=== PATIENT | female | born 1975 | race Caucasian/White ===

== ENCOUNTER 2018-05-11 22:42 | Inpatient (IN) | payer BC ==
--- NOTE | 2018-05-11 23:09 | PDOC ---
History of Present Illness - General Chief Complaint: Pain Stated Complaint: Vomiting/ ABD PAIN Time Seen by Provider: 05/11/18 23:09 Past History - Past Medical History Allergies/Adverse Reactions: Allergies Allergy/AdvReac Type Severity Reaction Status Date / Time No Known Allergies Allergy Verified 05/11/18 22:49 Home Medications: Ambulatory Orders Capecitabine [Xeloda -] 150 mg PO DAILY 02/11/16 Docusate Sodium [Colace -] 100 mg PO BID 02/11/16 Oxaliplatin [Eloxatin -] 50 mg IV ONCE 02/11/16 Psyllium Husk [Metamucil] 660 gm PO DAILY 02/11/16 Cancer: Yes (rectal) COPD: No - Surgical History Abdominal Surgery: Yes (COLSTOMY) - Suicide/Smoking/Psychosocial Hx Smoking History: Never smoked *Physical Exam - Vital Signs Last Vital Signs Temp Pulse Resp BP Pulse Ox 98.2 F 77 18 111/79 100 05/11/18 22:45 05/11/18 22:45 05/11/18 22:45 05/11/18 22:45 05/11/18 22:45
[2018-05-11 23:27] VITALS: BMI 22.9
--- NOTE | 2018-05-11 23:27 | PDOC ---
History of Present Illness - General Chief Complaint: Pain Stated Complaint: Vomiting/ ABD PAIN Time Seen by Provider: 05/11/18 23:09 - History of Present Illness Initial Comments: 42 year old female with PH of colorectal cancer since 2016 (recurrence 4 months prior requiring resection and currently on "mop up" chemotherapy) presenting with nausea, vomiting, and abdominal pain for the past few hours. Describes her vomiting as non-bloody but bilious had hit "countless times today ". Describes her abdominal pain as diffuse, crampy, and sharp with 7/10-10/10 and constantly present with occasional increase in intensity. Denies any cough, SOB, chest pain, headache, fevers, or other symptoms. 05/12/18 00:35 Past History - Past Medical History Allergies/Adverse Reactions: Allergies Allergy/AdvReac Type Severity Reaction Status Date / Time No Known Allergies Allergy Verified 05/11/18 22:49 Home Medications: Ambulatory Orders Capecitabine [Xeloda -] 150 mg PO DAILY 02/11/16 Docusate Sodium [Colace -] 100 mg PO BID 02/11/16 Oxaliplatin [Eloxatin -] 50 mg IV ONCE 02/11/16 Psyllium Husk [Metamucil] 660 gm PO DAILY 02/11/16 Cancer: Yes (rectal) COPD: No - Surgical History Abdominal Surgery: Yes (COLSTOMY) - Suicide/Smoking/Psychosocial Hx Smoking History: Never smoked Review of Systems - Review of Systems Constitutional: No: Chills, Diaphoresis, Fever HEENTM: No: Blurred Vision, Tearing Respiratory: No: Cough, Orthopnea, Shortness of Breath Cardiac (ROS): No: Chest Pain, Edema, Irregular Heart Rate ABD/GI: Yes: Nausea, Poor Appetite, Vomiting. No: Constipated, Diarrhea : No: Burning, Dysuria, Discharge Musculoskeletal: No: Back Pain, Joint Pain, Joint Swelling, Muscle Pain Integumentary: No: Bruising, Change in Color, Erythema, Flushing, Lesions Neurological: No: Headache, Numbness, Paresthesia Psychiatric: No: Anxiety, Depression Endocrine: No: Increased Hunger, Increased Thirst, Increased Urine Hematologic/Lymphatic: No: Anemia, Blood Clots, Easy Bleeding *Physical Exam - Vital Signs Last Vital Signs Temp Pulse Resp BP Pulse Ox 98.2 F 77 18 111/79 100 05/11/18 22:45 05/11/18 22:45 05/11/18 22:45 05/11/18 22:45 05/11/18 22:45 - Physical Exam General Appearance: Yes: Nourished, Appropriately Dressed. No: Apparent Distress HEENT: positive: EOMI, TAMARA, Normal ENT Inspection, Normal Voice Neck: positive: Trachea midline, Normal Thyroid, Supple. negative: Tender, Rigid Respiratory/Chest: positive: Lungs Clear, Normal Breath Sounds. negative: Chest Tender, Respiratory Distress, Accessory Muscle Use Cardiovascular: positive: Regular Rhythm, Regular Rate. negative: Bradycardia, Tachycardia Gastrointestinal/Abdominal: positive: Tender (diffusely tender), Flat, Soft, Increased Bowel Sounds, Other (colostomy bag in place on inthe upper left quadrant with insertin site clean dry and intact). negative: Normal Bowel Sounds (hyperactive bowel sounds) Lymphatic: negative: Adenopathy, Tenderness Musculoskeletal: positive: Normal Inspection. negative: Decreased Range of Motion Extremity: positive: Normal Capillary Refill, Normal Inspection, Normal Range of Motion. negative: Tender Integumentary: positive: Normal Color, Dry, Warm Neurologic: positive: Fully Oriented, Alert, Normal Mood/Affect, Normal Response , Motor Strength 5/5 ED Treatment Course - LABORATORY CBC & Chemistry Diagram: 05/11/18 00:32 05/11/18 00:32 Medical Decision Making - Medical Decision Making 42 year old s/p colostomy bag placement with colorectal carcinoma recurrence resection presenting with abdominal pain, nausea, and vomiting of sudden onset today. VSS but patient severely tender. Labs WNL and patient pain mildly improved to morphine [address] abdomen with IV con results pending and patient was signed out to Dr. Zabala pending results with suspicion for SBO vs. ileus as patient is afebrile and colostomy site does not appear infected. If CT scan negative, patient will likely have to be admitted regardless for intractable nausea, vomiting, and abdominal pain. 05/12/18 02:05 *DC/Admit/Observation/Transfer Diagnosis at time of Disposition: Intractable abdominal pain Nausea & vomiting Qualifiers: Vomiting type: bilious vomiting Qualified Code(s): R11.14 - Bilious vomiting - Referrals - Patient Instructions - Post Discharge Activity
[2018-05-11] MEDS ORDERED: ONDANSETRON 4 MG/2 ML VIAL IVPUSH ONE (23:38)
[2018-05-11] MEDS ORDERED: SODIUM CHLORIDE 0.9% 500 ML INFUS.BAG IV ONE (23:39)
[2018-05-12] MEDS ORDERED: morphine CARPU-JECT 4 MG/1 ML DISP.SYRIN IVPUSH ONE ×3 (00:14→04:47)
[2018-05-12] MEDS ORDERED: morphine SULFATE 4 MG/ML VIAL ONE ×3 (00:23→11:05)
[2018-05-12] MEDS ORDERED: ONDANSETRON 4 MG/2 ML VIAL ONE ×3 (00:23→15:48)
[2018-05-12 01:02] LABS: BASO % 0.3 % (0-2.0); EOS % 0.3 % (0-4.5); HEMATOCRIT 40.4 % (32.4-45.2); HEMOGLOBIN 13.1 GM/dL (10.7-15.3); LYMPH % 8.6 % (8-40); MCH 26.3 pg (25.7-33.7); MCHC 32.4 g/dl (32.0-36.0); MEAN CELL VOLUME 81.1 fl (80-96); MEAN PLT VOLUME 8.2 fl (7.5-11.1); MONO % 3.7 % (3.8-10.2); NEUT % 87.1 % (42.8-82.8); PLATELET COUNT 321 K/MM3 (134-434); RBC 4.99 M/mm3 (3.60-5.2); RDW 16.6 % (11.6-15.6); WHITE BLOOD COUNT 7.8 K/mm3 (4.0-10.0)
[2018-05-12 01:15] LABS: INR 0.92 (0.83-1.09); PROTHROMBIN TIME (PATIENT) 10.8 SEC (9.7-13.0)
[2018-05-12 01:26] LABS: ALBUMIN 4.8 g/dl (3.4-5.0); ALK PHOS 128 U/L (45-117); ANION GAP 10 MMOL/L (8-16); BILIRUBIN,TOTAL 0.3 mg/dL (0.2-1); BLOOD UREA NITROGEN 13 mg/dL (7-18); CALCIUM 10.2 mg/dL (8.5-10.1); CHLORIDE 102 mmol/L (98-107); CO2 29 mmol/L (21-32); CREATININE 0.8 mg/dL (0.55-1.3); GLUCOSE,RANDOM 109 mg/dL (74-106); POTASSIUM 4.2 mmol/L (3.5-5.1); SGOT/AST 31 U/L (15-37); SGPT/ALT 29 U/L (13-61); SODIUM 141 mmol/L (136-145); TOT PROT 9.2 g/dl (6.4-8.2)
--- NOTE | 2018-05-12 02:01 | PDOC ---
Attending Attestation - HPI HPI: 05/12/18 02:01 The patient is a 42 year old female with a past medical history of colorectal cancer and permanent ostomy bag (12/26) who presents to the emergency department for evaluation of abdominal pain with nausea and vomiting since 7pm. Patient endorses lightheadedness. Denies palpitations, chest pain, fevers, chills, diarrhea, and constipation. Allergies: NKDA PCP: Dr. Irizarry (Not on staff) - Physicial Exam PE: wnwd 42 y/o female in no acute distress head ncat neck supple oropharynx no exudates neck supple Heart RRR. No gallops, murmurs, or rubs. lungs clear to auscultation bilaterally Abd (+)Diffusely tender. Osteotomy site clean, no erythema, purulence, or drainage.Abdominal incisions old well healed. ext no e/c/c, MAEx4 skin warm and dry,no rashes neuro A&Ox3,no gross focal neuro deficits. Conversant. <Ba Tolbert - Last Filed: 05/12/18 02:01> - Resident Resident Name: Darinel Gonzalez - ED Attending Attestation I have performed the following: I have examined & evaluated the patient, The case was reviewed & discussed with the resident, I agree w/resident's findings & plan, Exceptions are as noted - Medical Decision Making 05/12/18 02:10 concern for SBO pt recieved antiemetics pt has pending ct scam abd/pel signed out to Dr Link <Celena Torres - Last Filed: 05/12/18 02:10> Attestations - Attestations Documentation prepared by Ba Tolbert, acting as medical hospital sales for Celena Torres MD. <Ba Tolbert - Last Filed: 05/12/18 02:01>
[2018-05-12 02:09] LABS: URINE APPEARANCE CLOUDY; URINE BILIRUBIN NEGATIVE (<2.0 mg/dL); URINE COLOR YELLOW; URINE GLUCOSE (UA) NEGATIVE (NEGATIVE); URINE KETONE NEGATIVE (NEGATIVE); URINE NITRITE NEGATIVE (NEGATIVE); URINE PROTEIN NEGATIVE (NEGATIVE); URINE UROBILINOGEN NEGATIVE mg/dL (0.2-1.0)
[2018-05-12 02:10] LABS: HCG,QUALITATIVE URINE Negative
[2018-05-12 02:11] LABS: URINE LEUK ESTERASE 3+ (NEGATIVE)
[2018-05-12 02:12] LABS: EPI CELLS RARE /HPF (FEW); URINE MUCUS RARE
[2018-05-12] MEDS ORDERED: SODIUM CHLORIDE 1,000 ML IV STA (02:25)
--- NOTE | 2018-05-12 03:03 | PDOC ---
*Physical Exam - Vital Signs Last Vital Signs Temp Pulse Resp BP Pulse Ox 98.2 F 77 18 111/79 100 05/11/18 22:45 05/11/18 22:45 05/11/18 22:45 05/11/18 22:45 05/11/18 22:45 ED Treatment Course - LABORATORY CBC & Chemistry Diagram: 05/11/18 00:32 05/11/18 00:32 - ADDITIONAL ORDERS Additional order review: Laboratory Results 05/12/18 05/11/18 05/11/18 01:39 00:32 00:32 PT with INR INR Sodium 141 Potassium 4.2 Chloride 102 Carbon Dioxide 29 Anion Gap 10 BUN 13 Creatinine 0.8 Creat Clearance w eGFR > 60 Random Glucose 109 H Lactic Acid 1.7 Calcium 10.2 H Total Bilirubin 0.3 AST 31 ALT 29 Alkaline Phosphatase 128 H Total Protein 9.2 H Albumin 4.8 Beta HCG, Quant 2.1 Urine Color Yellow Urine Appearance Cloudy Urine pH 7.0 D Ur Specific [place] 1.018 Urine Protein Negative Urine Glucose (UA) Negative Urine Ketones Negative Urine Blood Negative Urine Nitrite Negative Urine Bilirubin Negative Urine Urobilinogen Negative Ur Leukocyte Esterase 3+ H D Urine WBC (Auto) 31 Urine RBC (Auto) 6 Ur Epithelial Cells Rare Urine Mucus Rare Urine HCG, Qual Negative 05/11/18 00:32 PT with INR 10.80 INR 0.92 Sodium Potassium Chloride Carbon Dioxide Anion Gap BUN Creatinine Creat Clearance w eGFR Random Glucose Lactic Acid Calcium Total Bilirubin AST ALT Alkaline Phosphatase Total Protein Albumin Beta HCG, Quant Urine Color Urine Appearance Urine pH Ur Specific [place] Urine Protein Urine Glucose (UA) Urine Ketones Urine Blood Urine Nitrite Urine Bilirubin Urine Urobilinogen Ur Leukocyte Esterase Urine WBC (Auto) Urine RBC (Auto) Ur Epithelial Cells Urine Mucus Urine HCG, Qual 05/11/18 00:32 RBC 4.99 MCV 81.1 MCHC 32.4 RDW 16.6 H MPV 8.2 Neutrophils % 87.1 H D Lymphocytes % 8.6 D Monocytes % 3.7 L Eosinophils % 0.3 Basophils % 0.3 - Medications Given in the ED: ED Medications Discontinued Medications Generic Name Dose Route Start Last Admin Trade Name Freq PRN Reason Stop Dose Admin Morphine Sulfate 4 mg 05/12/18 00:14 05/12/18 00:30 Morphine Injection - IVPUSH 05/12/18 00:15 4 mg ONCE ONE Administration Morphine Sulfate 4 mg 05/12/18 01:25 05/12/18 01:47 Morphine Injection - IVPUSH 05/12/18 01:26 4 mg ONCE ONE Administration Ondansetron HCl 4 mg 05/11/18 23:38 05/12/18 00:29 Zofran Injection IVPUSH 05/11/18 23:39 4 mg ONCE ONE Administration Sodium Chloride 1,000 ml 05/11/18 23:39 05/12/18 00:29 Normal Saline - IV 05/11/18 23:40 1,000 ml ONCE ONE Administration Medical Decision Making - Medical Decision Making 05/12/18 03:02 42 year old female with PMH colon cancer (resected x5 months ago, has colostomy , on chemo presented to ED complaining of N/V, diffuse abdominal pain. CBC WBC 7.8 K/mm3 (4.0-10.0) 05/11/18 00:32 RBC 4.99 M/mm3 (3.60-5.2) 05/11/18 00:32 Hgb 13.1 GM/dL (10.7-15.3) 05/11/18 00:32 Hct 40.4 % (32.4-45.2) D 05/11/18 00:32 MCV 81.1 fl (80-96) 05/11/18 00:32 MCH 26.3 pg (25.7-33.7) D 05/11/18 00:32 MCHC 32.4 g/dl (32.0-36.0) 05/11/18 00:32 RDW 16.6 % (11.6-15.6) H 05/11/18 00:32 Plt Count 321 K/MM3 (134-434) D 05/11/18 00:32 MPV 8.2 fl (7.5-11.1) 05/11/18 00:32 Absolute Neuts (auto) 6.8 K/mm3 (1.5-8.0) 05/11/18 00:32 Neutrophils % 87.1 % (42.8-82.8) H D 05/11/18 00:32 Lymphocytes % 8.6 % (8-40) D 05/11/18 00:32 Monocytes % 3.7 % (3.8-10.2) L 05/11/18 00:32 Eosinophils % 0.3 % (0-4.5) 05/11/18 00:32 Basophils % 0.3 % (0-2.0) 05/11/18 00:32 Nucleated RBC % 0 % (0-0) 05/11/18 00:32 CMP Sodium 141 mmol/L (136-145) 05/11/18 00:32 Potassium 4.2 mmol/L (3.5-5.1) 05/11/18 00:32 Chloride 102 mmol/L (98-107) 05/11/18 00:32 Carbon Dioxide 29 mmol/L (21-32) 05/11/18 00:32 Anion Gap 10 MMOL/L (8-16) 05/11/18 00:32 BUN 13 mg/dL (7-18) 05/11/18 00:32 Creatinine 0.8 mg/dL (0.55-1.3) 05/11/18 00:32 Creat Clearance w eGFR > 60 (>60) 05/11/18 00:32 Random Glucose 109 mg/dL (74-106) H 05/11/18 00:32 Lactic Acid 1.7 mmol/L (0.4-2.0) 05/11/18 00:32 Calcium 10.2 mg/dL (8.5-10.1) H 05/11/18 00:32 Total Bilirubin 0.3 mg/dL (0.2-1) 05/11/18 00:32 AST 31 U/L (15-37) 05/11/18 00:32 ALT 29 U/L (13-61) 05/11/18 00:32 Alkaline Phosphatase 128 U/L (45-117) H 05/11/18 00:32 Total Protein 9.2 g/dl (6.4-8.2) H 05/11/18 00:32 Albumin 4.8 g/dl (3.4-5.0) 05/11/18 00:32 Beta HCG, Quant 2.1 mIU/ml 05/11/18 00:32 Urine Test Results Urine Color Yellow 05/12/18 01:39 Urine Appearance Cloudy 05/12/18 01:39 Urine pH 7.0 (5.0-8.0) D 05/12/18 01:39 Ur Specific [place] 1.018 (1.001-1.035) 05/12/18 01:39 Urine Protein Negative (NEGATIVE) 05/12/18 01:39 Urine Glucose (UA) Negative (NEGATIVE) 05/12/18 01:39 Urine Ketones Negative (NEGATIVE) 05/12/18 01:39 Urine Blood Negative (NEGATIVE) 05/12/18 01:39 Urine Nitrite Negative (NEGATIVE) 05/12/18 01:39 Urine Bilirubin Negative (<2.0 mg/dL) 05/12/18 01:39 Ur Leukocyte Esterase 3+ (NEGATIVE) H D 05/12/18 01:39 Ur Epithelial Cells Rare /HPF (FEW) 05/12/18 01:39 Urine Mucus Rare 05/12/18 01:39 CT A/P - SBO - I spoke with the patient and her family about the need for an NG tube, they expressed understanding and agree to have it placed. - NG tube placed - Surgery paged. I spoke with the admitting team, Dr. Antonio, about the case, who agrees to have the patient admitted to Dr. Vaughn's service. - Pt will be admitted. - I spoke with the patient and her family about the plan for care, with which they agree. Pt reassessed, reports pain at the NG tube site in nose. - 4 mg morphine ordered. EKG performed at 0626 - rate 63, regular rhythm, normal axis, normal intervals, non-specific ST changes. 05/12/18 06:52 Pt complains of nausea. - Zofran ordered. I spoke with Surgery, Dr. Vinson, about the case, he agrees to consult. *DC/Admit/Observation/Transfer Diagnosis at time of Disposition: Intractable abdominal pain, SBO (small bowel obstruction) Nausea & vomiting Qualifiers: Vomiting type: bilious vomiting Qualified Code(s): R11.14 - Bilious vomiting - Discharge Dispostion Condition at time of disposition: Stable Decision to Admit order: Yes - Referrals - Patient Instructions - Post Discharge Activity
[2018-05-12] MEDS ORDERED: MORPHINE SULFATE 2 MG/ML VIAL ONE (05:04)
--- NOTE | 2018-05-12 05:32 | PN ---
Teaching Attending Note Name of Resident: Ja Giordano ATTENDING PHYSICIAN STATEMENT I saw and evaluated the patient. I reviewed the resident's note and discussed the case with the resident. I agree with the resident's findings and plan as documented. SUBJECTIVE: Patient is a 42 year old woman with history of colorectal cancer since 2016 ( recurrence 4 months prior requiring resection and currently on "mop up" chemotherapy) presenting with nausea, vomiting, and abdominal pain for the past few hours. Describes her vomiting as non-bloody but bilious had hit "countless times today". Describes her abdominal pain as diffuse, crampy, and sharp with 7/ 10-10/10 and constantly present with occasional increase in intensity. Denies any cough, SOB, chest pain, headache, fevers, or other symptoms. OBJECTIVE: Alert Vital Signs Period Temp Pulse Resp BP Sys/Nicole Pulse Ox Last 24 Hr 98.2 F 77 18 111/79 100 HEENT: No Jaundice, eye redness or discharge, PERRLA, EOMI. Normocephalic, atraumatic. External ears are normal and hearing is grossly intact. No nasal discharge. Neck: Supple, nontender. No palpable adenopathy or thyromegaly. No JVD Chest: Good effort. Clear to auscultation and percussion. Heart: Regular. No S3, rub or murmur Abdomen: Not distended, soft, diffuse tenderness, LUQ colostomy intact and no HSM. No rebound or guarding. Hyperactive bowel sounds. Ext: Peripheral pulses intact. No leg edema. Skin: Warm and dry. No petechiae, rash or ecchymosis. Neuro: Alert. Oriented x3. CN 2-12 grossly intact. Sensation grossly intact in all four extremities and DTR are symmetric. Home Medications Medication Instructions Recorded Capecitabine [Xeloda -] 150 mg PO DAILY 02/11/16 Docusate Sodium [Colace -] 100 mg PO BID 02/11/16 Oxaliplatin [Eloxatin -] 50 mg IV ONCE 02/11/16 Psyllium Husk [Metamucil] 660 gm PO DAILY 02/11/16 Abnormal Lab Results 05/11/18 05/11/18 05/12/18 00:32 00:32 01:39 RDW 16.6 H Neutrophils % 87.1 H D Monocytes % 3.7 L Random Glucose 109 H Calcium 10.2 H Alkaline Phosphatase 128 H Total Protein 9.2 H Ur Leukocyte Esterase 3+ H D ASSESSMENT AND PLAN: 1. SBO/UTI - Clinical features consistent with bowel obstruction. Awaiting result of abd/pelvis CT scan. Continue pain control with IV morphine, NGT and IV NS. Awaiting surgery evaluation. Will give IV Rocephin for UTI pending culture report. 2. DVT prophylaxis - Lovenox 40 mg SQ q 24 hours. 3. Advance directives - Full code
--- NOTE | 2018-05-12 05:34 | HP ---
CHIEF COMPLAINT: nausea/vomiting/abdominal pain for 2 days PCP: HISTORY OF PRESENT ILLNESS: 42F w/ pmhx of colorectal cancer (diagnosed 2015) w/ multiple abdominal surgeries s/p ostomy bag placement since 12/26 presented to the ED w/ nausea, vomiting, abdominal pain for 2 days. She states she has never had these symptoms before and reports the abdominal pain to be 6/10. She denies sob, chest pain, [place]/d, urinary symptoms, or blood in urine or stool. 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 Home: Currently lives with 1 son, 1 daughter Family History: Denies Allergies No Known Allergies Allergy (Verified 05/11/18 22:49) HOME MEDICATIONS: Home Medications Medication Instructions Recorded Capecitabine [Xeloda -] 150 mg PO DAILY 02/11/16 Docusate Sodium [Colace -] 100 mg PO BID 02/11/16 Oxaliplatin [Eloxatin -] 50 mg IV ONCE 02/11/16 Psyllium Husk [Metamucil] 660 gm PO DAILY 02/11/16 REVIEW OF SYSTEMS CONSTITUTIONAL: Absent: fever, chills, diaphoresis, generalized weakness, malaise, loss of appetite, weight change HEENT: Absent: rhinorrhea, nasal congestion, throat pain, throat swelling, difficulty swallowing, mouth swelling, ear pain, eye pain, visual changes CARDIOVASCULAR: Absent: chest pain, syncope, palpitations, irregular heart rate, lightheadedness , peripheral edema RESPIRATORY: Absent: cough, shortness of breath, dyspnea with exertion, orthopnea, wheezing, stridor, hemoptysis GASTROINTESTINAL: abdominal pain, abdominal distension, nausea, vomiting Absent: diarrhea, constipation, melena, hematochezia GENITOURINARY: Absent: dysuria, frequency, urgency, hesitancy, hematuria, flank pain, genital pain MUSCULOSKELETAL: Absent: myalgia, arthralgia, joint swelling, back pain, neck pain SKIN: Absent: rash, itching, pallor HEMATOLOGIC/IMMUNOLOGIC: Absent: easy bleeding, easy bruising, lymphadenopathy, frequent infections ENDOCRINE: Absent: unexplained weight gain, unexplained weight loss, heat intolerance, cold intolerance NEUROLOGIC: Absent: headache, focal weakness or paresthesias, dizziness, unsteady gait, seizure, mental status changes, bladder or bowel incontinence PSYCHIATRIC: Absent: anxiety, depression, suicidal or homicidal ideation, hallucinations. PHYSICAL EXAMINATION Vital Signs - 24 hr 05/11/18 22:45 Temperature 98.2 F Pulse Rate 77 Respiratory 18 Rate Blood Pressure 111/79 O2 Sat by Pulse 100 Oximetry (%) GENERAL: AAOx3. Lethagic. HEENT: NC/AT. Moist mucus membranes. NG tube in place. NECK: Normal range of motion. Supple, no LAD/JVD. LUNGS: CTA B/L, No w/r/r noted. ABDOMEN: Soft, tender to palpation. Mildly distended. Ostomy bag in place with brown liquid stool. Multiple abdominal surgical scars. MUSCULOSKELETAL: Normal range of motion at all joints. No bony deformities or tenderness. No CVA tenderness. UPPER EXTREMITIES: 2+ pulses, warm, well-perfused. No cyanosis. No clubbing. No peripheral edema. LOWER EXTREMITIES: 2+ pulses, warm, well-perfused. No calf tenderness. No peripheral edema. NEUROLOGICAL: Cranial nerves II-XII intact. Normal speech. Gait not observed. PSYCHIATRIC: Cooperative. Good eye contact. Appropriate mood and affect. SKIN: Warm, dry, normal turgor, no rashes or lesions noted, normal capillary refill. Laboratory Results - last 24 hr 05/11/18 05/11/18 05/11/18 00:32 00:32 00:32 WBC 7.8 RBC 4.99 Hgb 13.1 Hct 40.4 D MCV 81.1 MCH 26.3 D MCHC 32.4 RDW 16.6 H Plt Count 321 D MPV 8.2 Absolute Neuts (auto) 6.8 Neutrophils % 87.1 H D Lymphocytes % 8.6 D Monocytes % 3.7 L Eosinophils % 0.3 Basophils % 0.3 Nucleated RBC % 0 PT with INR 10.80 INR 0.92 Sodium 141 Potassium 4.2 Chloride 102 Carbon Dioxide 29 Anion Gap 10 BUN 13 Creatinine 0.8 Creat Clearance w eGFR > 60 Random Glucose 109 H Lactic Acid Calcium 10.2 H Total Bilirubin 0.3 AST 31 ALT 29 Alkaline Phosphatase 128 H Total Protein 9.2 H Albumin 4.8 Beta HCG, Quant 2.1 Urine Color Urine Appearance Urine pH Ur Specific [place] Urine Protein Urine Glucose (UA) Urine Ketones Urine Blood Urine Nitrite Urine Bilirubin Urine Urobilinogen Ur Leukocyte Esterase Urine WBC (Auto) Urine RBC (Auto) Ur Epithelial Cells Urine Mucus Urine HCG, Qual 05/11/18 05/12/18 00:32 01:39 WBC RBC Hgb Hct MCV MCH MCHC RDW Plt Count MPV Absolute Neuts (auto) Neutrophils % Lymphocytes % Monocytes % Eosinophils % Basophils % Nucleated RBC % PT with INR INR Sodium Potassium Chloride Carbon Dioxide Anion Gap BUN Creatinine Creat Clearance w eGFR Random Glucose Lactic Acid 1.7 Calcium Total Bilirubin AST ALT Alkaline Phosphatase Total Protein Albumin Beta HCG, Quant Urine Color Yellow Urine Appearance Cloudy Urine pH 7.0 D Ur Specific [place] 1.018 Urine Protein Negative Urine Glucose (UA) Negative Urine Ketones Negative Urine Blood Negative Urine Nitrite Negative Urine Bilirubin Negative Urine Urobilinogen Negative Ur Leukocyte Esterase 3+ H D Urine WBC (Auto) 31 Urine RBC (Auto) 6 Ur Epithelial Cells Rare Urine Mucus Rare Urine HCG, Qual Negative ASSESSMENT/PLAN: 42F w/ pmhx of colorectal cancer (diagnosed 2015) s/p colostomy bag presents with n/v/abd pain admitted for SBO. #SBO -NPO -NG tube -Morphine 4 mg IVP for pain -Zofran 4 mg IVP for nausea -Surgery consult ordered #UTI; U/A 3+ LE, 3+ WBCs -empiric Ceftriaxone 1g IVPB QD -urine cx ordered #DVT Ppx -SCDs #FEN -recheck lytes in AM -NPO dispo -admit to med-surg Visit type - Emergency Visit Emergency Visit: Yes ED Registration Date: 05/12/18 Care time: The patient presented to the Emergency Department on the above date and was hospitalized for further evaluation of their emergent condition. - New Patient This patient is new to me today: Yes Date on this admission: 05/12/18 - Critical Care Critical Care patient: No
[2018-05-12] MEDS ORDERED: ONDANSETRON 4 MG/2 ML VIAL IVPUSH ONE ×2 (06:52→07:01)
[2018-05-12] MEDS ORDERED: CEFTRIAXONE 1,000 MG in DEXTROSE 5%-WATER - 50 ML IVPB ONE (07:02)
[2018-05-12] MEDS ORDERED: CEFTRIAXONE 1 GM/50 ML BAG ONE (07:44)
[2018-05-12] MEDS ORDERED: ONDANSETRON 4 MG/2 ML VIAL IVPUSH PRN (08:10)
--- NOTE | 2018-05-12 10:25 | CONSULT ---
Consult Consult Specialty:: General Surgery Reason for Consultation:: SBO s/p ivaniadominal juan 5 months ago - History of Present Illness Chief Complaint: Nausea and vomiting History of Present Illness: 42 yo female PMH colorectal cancer since 2016 (recurrence 4 months prior requiring resection), currently on oral chemotherapy, presented with nausea, vomiting, and abdominal pain for the past few hours. He last meal was at 7pm last night and she vomited that before coming to the ED. That was the only large volume emesis (>1cup), since then she has had small volume (<1/4 cup) clear spit-up, 5 or 6 times since her arrival in the ED. Abdominal main was crampy but has improved. She has a functioning end colostomy, she reports gas and stool in the bag today. She had simialar episodes on IV chemotherapy but never on oral. She was not on antiemtic therapy. She denies any cough, SOB, chest pain, headache, fevers, or other symptoms. CT scan showed some distedend loops os SB, and was read as SBO. We were asked to assess. - History Source History Provided By: Patient, Medical Record Limitations to Obtaining History: No Limitations - Smoking History Smoking history: Never smoked Home Medications - Allergies Allergies/Adverse Reactions: Allergies Allergy/AdvReac Type Severity Reaction Status Date / Time No Known Allergies Allergy Verified 05/11/18 22:49 - Home Medications Home Medications: Ambulatory Orders Capecitabine [Xeloda -] 150 mg PO DAILY 02/11/16 Docusate Sodium [Colace -] 100 mg PO BID 02/11/16 Oxaliplatin [Eloxatin -] 50 mg IV ONCE 02/11/16 Psyllium Husk [Metamucil] 660 gm PO DAILY 02/11/16 Review of Systems - Review of Systems Constitutional: reports: Loss of Appetite, Unintentional Wgt. Loss, Weakness. denies: Chills, Fever Eyes: denies: Blind Spots, Recent Change in Vision HENT: denies: Difficult Swallowing, Throat Pain Neck: denies: Pain on Movement, Swollen Glands, Tenderness Cardiovascular: denies: Chest Pain, Palpitations Respiratory: denies: Cough, SOB Gastrointestinal: reports: Abdominal Pain, Nausea, Vomiting Genitourinary: denies: Discharge, Dysuria Breasts: reports: No Symptoms Reported. denies: Pain Integumentary: denies: Lesions, Lump, Rash Neurological: denies: Seizure, Syncope Endocrine: denies: Unexplained Weight Gain, Unexplained Weight Loss Hematology/Lymphatic: denies: Easily Bruised, Excessive Bleeding Psychiatric: reports: Depression. denies: Anxiety Physical Exam Vital Signs: Vital Signs Temperature 98.8 F 05/12/18 09:00 Pulse Rate 71 05/12/18 09:00 Respiratory Rate 18 05/12/18 09:00 Blood Pressure 115/77 05/12/18 09:00 O2 Sat by Pulse Oximetry (%) 100 05/11/18 22:45 Constitutional: Yes: No Distress, Calm, Thin Eyes: Yes: Conjunctiva Clear, EOM Intact HENT: Yes: Atraumatic, Normocephalic, Other (NGT in place, 100ml of bilious tinted/ clear effluent) Neck: Yes: Supple, Trachea Midline Cardiovascular: Yes: Regular Rate and Rhythm, S1, S2 Respiratory: Yes: Regular, CTA Bilaterally Gastrointestinal: Yes: Normal Bowel Sounds, Soft, Tenderness (discomfort on deep palpation, no peritoneal signs), Other (RLQ end colosomy, functional with soft stool and gas). No: Distention, Tenderness, Epigastrium, Tenderness, Rebound ...Rectal Exam: Yes: Deferred Renal/: No: CVA Tenderness - Left, CVA Tenderness - Right Musculoskeletal: No: Muscle Pain, Muscle Weakness Extremities: No: Cool, Cyanosis Edema: No Peripheral Pulses WNL: Yes Wound/Incision: Yes: Clean/Dry, Well Approximated, Other (Well healed midline scar) Neurological: Yes: Alert, Oriented Psychiatric: Yes: Alert, Oriented Labs: CBC, BMP 05/11/18 00:32 05/11/18 00:32 Imaging - Results Chest X-ray: Report Reviewed, Image Reviewed Cat Scan: Report Reviewed, Image Reviewed (SBO pattern, left colon and rectum missing) EKG: Report Reviewed, Image Reviewed Problem List - Problems (1) SBO (small bowel obstruction) Assessment/Plan: 42 yo female PMH colon cancer, s/p LAR 4 months ago at [facility] with one day of nausea and vomiting while on oral chemotherapy. She does not have an acute abdomen and will not likely require surgery. NPO and IVF hydration IV antiemetic therapy Consider transfer to surgeon at [facility] Adequate analgesia will follow if still in house Thank you for the opportunity to participate in the care of this patient. Code(s): K56.609 - UNSP INTESTNL OBST, UNSP TO PARTIAL VERSUS COMPLETE OBST (2) Nausea & vomiting Code(s): R11.2 - NAUSEA WITH VOMITING, UNSPECIFIED Qualifiers: Vomiting type: bilious vomiting Qualified Code(s): R11.14 - Bilious vomiting (3) Colon cancer Code(s): C18.9 - MALIGNANT NEOPLASM OF COLON, UNSPECIFIED Qualifiers: Colon location: sigmoid Qualified Code(s): C18.7 - Malignant neoplasm of sigmoid colon (4) Intractable abdominal pain Code(s): R10.9 - UNSPECIFIED ABDOMINAL PAIN
[2018-05-12] MEDS ORDERED: morphine SULFATE 4 MG/ML VIAL IVPUSH PRN (10:39)
--- NOTE | 2018-05-12 10:41 | EKG ---
Test Reason : Blood Pressure : / mmHG Vent. Rate : 063 BPM Atrial Rate : 063 BPM P-R Int : 180 ms QRS Dur : 078 ms QT Int : 400 ms P-R-T Axes : 075 030 020 degrees QTc Int : 409 ms NORMAL SINUS RHYTHM NONSPECIFIC T WAVE ABNORMALITY ABNORMAL ECG WHEN COMPARED WITH ECG OF 11-FEB-2016 15:26, NO SIGNIFICANT CHANGE WAS FOUND Confirmed by Avery Jennings MD ([id number]) on 05/12/2018 10:41:13 AM Referred By: Confirmed By:Avery Jennings MD
[2018-05-12] MEDS: SODIUM CHLORIDE 1,000 ML IV SCH ×2 (11:24→20:45)
--- NOTE | 2018-05-12 12:26 | PN ---
Physical Exam: SUBJECTIVE: Patient seen and examined. She continues to have abdominal pain, relieved by morphine. OBJECTIVE: Vital Signs Period Temp Pulse Resp BP Sys/Nicole Pulse Ox Last 24 Hr 98.2 F-98.8 F 71-77 18-18 111-115/77-79 100-100 GENERAL: The patient is awake, alert, and fully oriented, in no acute distress. LUNGS: Breath sounds equal, clear to auscultation bilaterally, no wheezes, no crackles, no accessory muscle use. HEART: Regular rate and rhythm, S1, S2 without murmur, rub or gallop. ABDOMEN: Soft, mild diffuse tenderness, nondistended, normoactive bowel sounds, functioning colostomy. EXTREMITIES: 2+ pulses, warm, well-perfused, no edema. Laboratory Results - last 24 hr 05/11/18 05/11/18 05/11/18 00:32 00:32 00:32 WBC 7.8 RBC 4.99 Hgb 13.1 Hct 40.4 D MCV 81.1 MCH 26.3 D MCHC 32.4 RDW 16.6 H Plt Count 321 D MPV 8.2 Absolute Neuts (auto) 6.8 Neutrophils % 87.1 H D Lymphocytes % 8.6 D Monocytes % 3.7 L Eosinophils % 0.3 Basophils % 0.3 Nucleated RBC % 0 PT with INR 10.80 INR 0.92 Sodium 141 Potassium 4.2 Chloride 102 Carbon Dioxide 29 Anion Gap 10 BUN 13 Creatinine 0.8 Creat Clearance w eGFR > 60 Random Glucose 109 H Lactic Acid Calcium 10.2 H Total Bilirubin 0.3 AST 31 ALT 29 Alkaline Phosphatase 128 H Total Protein 9.2 H Albumin 4.8 Beta HCG, Quant 2.1 Urine Color Urine Appearance Urine pH Ur Specific Beauty Urine Protein Urine Glucose (UA) Urine Ketones Urine Blood Urine Nitrite Urine Bilirubin Urine Urobilinogen Ur Leukocyte Esterase Urine WBC (Auto) Urine RBC (Auto) Ur Epithelial Cells Urine Mucus Urine HCG, Qual Blood Type Antibody Screen 05/11/18 05/11/18 05/12/18 00:32 07:46 01:39 WBC RBC Hgb Hct MCV MCH MCHC RDW Plt Count MPV Absolute Neuts (auto) Neutrophils % Lymphocytes % Monocytes % Eosinophils % Basophils % Nucleated RBC % PT with INR INR Sodium Potassium Chloride Carbon Dioxide Anion Gap BUN Creatinine Creat Clearance w eGFR Random Glucose Lactic Acid 1.7 Calcium Total Bilirubin AST ALT Alkaline Phosphatase Total Protein Albumin Beta HCG, Quant Urine Color Yellow Urine Appearance Cloudy Urine pH 7.0 D Ur Specific Beauty 1.018 Urine Protein Negative Urine Glucose (UA) Negative Urine Ketones Negative Urine Blood Negative Urine Nitrite Negative Urine Bilirubin Negative Urine Urobilinogen Negative Ur Leukocyte Esterase 3+ H D Urine WBC (Auto) 31 Urine RBC (Auto) 6 Ur Epithelial Cells Rare Urine Mucus Rare Urine HCG, Qual Negative Blood Type Cancelled Antibody Screen Cancelled 05/12/18 07:46 WBC RBC Hgb Hct MCV MCH MCHC RDW Plt Count MPV Absolute Neuts (auto) Neutrophils % Lymphocytes % Monocytes % Eosinophils % Basophils % Nucleated RBC % PT with INR INR Sodium Potassium Chloride Carbon Dioxide Anion Gap BUN Creatinine Creat Clearance w eGFR Random Glucose Lactic Acid Calcium Total Bilirubin AST ALT Alkaline Phosphatase Total Protein Albumin Beta HCG, Quant Urine Color Urine Appearance Urine pH Ur Specific Beauty Urine Protein Urine Glucose (UA) Urine Ketones Urine Blood Urine Nitrite Urine Bilirubin Urine Urobilinogen Ur Leukocyte Esterase Urine WBC (Auto) Urine RBC (Auto) Ur Epithelial Cells Urine Mucus Urine HCG, Qual Blood Type O POSITIVE Antibody Screen Negative Active Medications Generic Name Dose Route Start Last Admin Trade Name Freq PRN Reason Stop Dose Admin Sodium Chloride 1,000 mls @ 100 mls/hr 05/12/18 11:00 05/12/18 11:24 Normal Saline - IV 100 mls/hr ASDIR ANA Administration Morphine Sulfate 4 mg 05/12/18 10:39 05/12/18 11:20 Morphine Sulfate IVPUSH 4 mg Q4H PRN Administration PAIN LEVEL 6-10 Ondansetron HCl 4 mg 05/12/18 08:10 Zofran Injection IVPUSH Q6H PRN NAUSEA AND/OR VOMITING ASSESSMENT/PLAN: This is a 42 year old woman with a history of colorectal cancer who presented to the ED with abdominal pain, nausea and vomiting. 1. SBO - Maintain NGT, NPO - IV fluid - Pain control - Surgery consult - Family requesting transfer [place] [facility] [place] - I spoke with staff at her surgeon's office (Dr. Malcolm Bhatia [phone]), provided info, and faxed CT report. Dr. Bhatia will review data and call back after he is done in OR. 2. UTI - Continue Rocephin - Urine culture not done 3. Colorectal cancer, history of APR and colostomy Visit type - Emergency Visit Emergency Visit: Yes ED Registration Date: 05/12/18 Care time: The patient presented to the Emergency Department on the above date and was hospitalized for further evaluation of their emergent condition. - New Patient This patient is new to me today: Yes Date on this admission: 05/12/18 - Critical Care Critical Care patient: No - Discharge Referral Referred to [facility] Med P.C.: No
[2018-05-13 08:09] LABS: BASO % 0.2 % (0-2.0); EOS % 0.1 % (0-4.5); HEMATOCRIT 34.8 % (32.4-45.2); HEMOGLOBIN 11.3 GM/dL (10.7-15.3); LYMPH % 15.4 % (8-40); MCH 26.3 pg (25.7-33.7); MCHC 32.4 g/dl (32.0-36.0); MEAN CELL VOLUME 81.2 fl (80-96); MEAN PLT VOLUME 8.1 fl (7.5-11.1); MONO % 14.6 % (3.8-10.2); NEUT % 69.7 % (42.8-82.8); PLATELET COUNT 289 K/MM3 (134-434); RBC 4.28 M/mm3 (3.60-5.2); RDW 16.6 % (11.6-15.6); WHITE BLOOD COUNT 4.6 K/mm3 (4.0-10.0)
[2018-05-13 08:17] LABS: ALBUMIN 3.2 g/dl (3.4-5.0); ALK PHOS 73 U/L (45-117); ANION GAP 7 MMOL/L (8-16); BILIRUBIN,TOTAL 0.5 mg/dL (0.2-1); BLOOD UREA NITROGEN 13 mg/dL (7-18); CALCIUM 8.5 mg/dL (8.5-10.1); CHLORIDE 106 mmol/L (98-107); CO2 27 mmol/L (21-32); CREATININE 0.6 mg/dL (0.55-1.3); GLUCOSE,RANDOM 119 mg/dL (74-106); MAGNESIUM 2.2 mg/dL (1.8-2.4); POTASSIUM 3.7 mmol/L (3.5-5.1); SGOT/AST 20 U/L (15-37); SGPT/ALT 18 U/L (13-61); SODIUM 140 mmol/L (136-145); TOT PROT 6.6 g/dl (6.4-8.2)
[2018-05-13] MEDS: CEFTRIAXONE 1 GM in DEXTROSE 5%-WATER - 50 ML IVPB SCH (09:30)
[2018-05-13] MEDS ORDERED: DEXTROSE 5%-WATER - 50 ML IVPB ONE (09:41)
[2018-05-13] MEDS ORDERED: cefTRIAXone SODIUM 1 GM VIAL ONE (09:41)
--- NOTE | 2018-05-13 10:44 | PN ---
Progress Note, Physician Chief Complaint: abdominal pain and vomiting History of Present Illness: 42 yo female PMH colorectal cancer since 2016 (recurrence 4 months prior requiring resection), currently on oral chemotherapy, presented with nausea, vomiting, and abdominal pain for the past few hours. Abdominal pain has improved. Had emesis early this morning not since (~200ml bilious) - Current Medication List Current Medications: Active Medications Sodium Chloride (Normal Saline -) 1,000 mls @ 100 mls/hr IV ASDIR ANA Last Admin: 05/12/18 20:45 Dose: 100 mls/hr Ceftriaxone Sodium 1 gm/ (Dextrose) 50 mls @ 200 mls/hr IVPB DAILY ANA; Protocol Last Admin: 05/13/18 09:30 Dose: 200 mls/hr Morphine Sulfate (Morphine Sulfate) 4 mg IVPUSH Q4H PRN PRN Reason: PAIN LEVEL 6-10 Last Admin: 05/12/18 11:20 Dose: 4 mg Ondansetron HCl (Zofran Injection) 4 mg IVPUSH Q6H PRN PRN Reason: NAUSEA AND/OR VOMITING Last Admin: 05/12/18 15:51 Dose: 4 mg - Objective Vital Signs: Vital Signs Temperature 98.8 F 05/13/18 05:24 Pulse Rate 87 05/13/18 05:24 Respiratory Rate 18 05/13/18 05:24 Blood Pressure 122/76 05/13/18 05:24 O2 Sat by Pulse Oximetry (%) 99 05/12/18 22:49 Vital Signs Period Temp Pulse Resp BP Sys/Nicole Pulse Ox Last 24 Hr 98 F-99.3 F 60-87 - 113-132/63-78 99 Intake & Output 05/12/18 05/13/18 05/13/18 23:59 07:59 15:59 Intake Total 1050 Output Total 250 Balance 800 Weight 160 lb Intake: IV 1050 Normal Saline - 1,000 ml 1050 @ 100 mls/hr IV ASDIR ANA Rx#:[id number] Output: Gastric Drainage 200 Emesis 50 Other: Voiding Method Toilet Bowel Movement Yes Height 5 ft 10 in Body Mass Index (BMI) 22.9 Weight Measurement Method Standing Scale Constitutional: Yes: Well Nourished, No Distress, Calm Eyes: Yes: Conjunctiva Clear, EOM Intact HENT: Yes: Atraumatic, Normocephalic, Other (NGT in place) Neck: Yes: Supple, Trachea Midline Cardiovascular: Yes: Regular Rate and Rhythm, S1, S2 Gastrointestinal: Yes: Normal Bowel Sounds, Soft, Other (LLQ end colostomy, brown stool). No: Tenderness, Tenderness, Epigastrium, Tenderness, Rebound ...Rectal Exam: Yes: Deferred Genitourinary: No: CVA Tenderness - Left, CVA Tenderness - Right Musculoskeletal: No: Muscle Pain, Muscle Weakness Extremities: No: Cool, Cyanosis Edema: No Peripheral Pulses WNL: Yes Peripheral Pulses: Left Radial: 2+, Right Radial: 2+, Left Doralis Pedis: 2+, Right Dorsalis Pedis: 2+ Integumentary: No: Jaundice, Rash Wound/Incision: Yes: Clean/Dry Neurological: Yes: Alert, Oriented Psychiatric: Yes: Alert, Oriented Labs: CBC, BMP 05/13/18 06:25 05/13/18 06:25 INR, PTT INR 0.92 (0.83-1.09) 05/11/18 00:32 Problem List - Problems (1) SBO (small bowel obstruction) Assessment/Plan: 42 yo female PMH colon cancer, s/p LAR [address] [facility] with one day of nausea and vomiting while on oral chemotherapy. She does not have an acute abdomen and will not likely require surgery. She reports an episode of emesis this morning. NGT output only 250ml?, Abdominal xray shows non-specific gas pattern significant stool burden. NPO and IVF hydration continue NGT, possible D/C when less than 200 per shift ambulation scheduled IV antiemetic therapy Adequate analgesia will follow Code(s): K56.609 - UNSP INTESTNL OBST, UNSP TO PARTIAL VERSUS COMPLETE OBST (2) Nausea & vomiting Code(s): R11.2 - NAUSEA WITH VOMITING, UNSPECIFIED Qualifiers: Vomiting type: bilious vomiting Qualified Code(s): R11.14 - Bilious vomiting (3) Colon cancer Code(s): C18.9 - MALIGNANT NEOPLASM OF COLON, UNSPECIFIED Qualifiers: Colon location: sigmoid Qualified Code(s): C18.7 - Malignant neoplasm of sigmoid colon (4) Intractable abdominal pain Code(s): R10.9 - UNSPECIFIED ABDOMINAL PAIN
[2018-05-13] MEDS: ONDANSETRON 4 MG/2 ML VIAL IVPUSH SCH ×3 (12:27→21:36)
[2018-05-13] MEDS: SODIUM CHLORIDE 1,000 ML IV SCH (12:28)
--- NOTE | 2018-05-13 14:29 | PN ---
Physical Exam: SUBJECTIVE: Patient seen and examined. She had abdominal pain and vomiting this morning but has felt better since. OBJECTIVE: Vital Signs Period Temp Pulse Resp BP Sys/Nicole Pulse Ox Last 24 Hr 98 F-99.3 F 60-87 18-18 113-132/63-78 99 GENERAL: The patient is awake, alert, and fully oriented, in no acute distress. LUNGS: Breath sounds equal, clear to auscultation bilaterally, no wheezes, no crackles, no accessory muscle use. HEART: Regular rate and rhythm, S1, S2 without murmur, rub or gallop. ABDOMEN: Soft, nontender, nondistended, normoactive bowel sounds, no guarding, no rebound, functioning left-sided colostomy. EXTREMITIES: 2+ pulses, warm, well-perfused, no edema. Laboratory Results - last 24 hr 05/13/18 05/13/18 06:25 06:25 WBC 4.6 RBC 4.28 Hgb 11.3 Hct 34.8 MCV 81.2 MCH 26.3 MCHC 32.4 RDW 16.6 H Plt Count 289 MPV 8.1 Absolute Neuts (auto) 3.2 Neutrophils % 69.7 Lymphocytes % 15.4 D Monocytes % 14.6 H D Eosinophils % 0.1 Basophils % 0.2 Nucleated RBC % 0 Sodium 140 Potassium 3.7 Chloride 106 Carbon Dioxide 27 Anion Gap 7 L BUN 13 Creatinine 0.6 Creat Clearance w eGFR > 60 Random Glucose 119 H Calcium 8.5 Phosphorus 3.0 Magnesium 2.2 Total Bilirubin 0.5 AST 20 ALT 18 Alkaline Phosphatase 73 Total Protein 6.6 Albumin 3.2 L Active Medications Generic Name Dose Route Start Last Admin Trade Name Freq PRN Reason Stop Dose Admin Sodium Chloride 1,000 mls @ 100 mls/hr 05/12/18 11:00 05/13/18 12:28 Normal Saline - IV 100 mls/hr ASDIR ANA Administration Ceftriaxone Sodium 1 gm/ 50 mls @ 200 mls/hr 05/13/18 10:00 05/13/18 09:30 Dextrose IVPB 200 mls/hr DAILY ANA Administration Protocol Morphine Sulfate 4 mg 05/12/18 10:39 05/12/18 11:20 Morphine Sulfate IVPUSH 4 mg Q4H PRN Administration PAIN LEVEL 6-10 Ondansetron HCl 4 mg 05/13/18 11:30 05/13/18 12:27 Zofran Injection IVPUSH Not Given Q8H [facility] ASSESS[facility]/PLAN: This is a 42 year old woman with a history of colorectal cancer who presented to the ED with abdominal pain, nausea and vomiting. 1. SBO - Improving - Maintain NGT, NPO - Continue IV fluid - Remove NGT as per surgery - Patient only wants transfer to [facility] [place] if she requires surgery 2. UTI - Continue Rocephin - Urine culture not done 3. Colorectal cancer, history of APR and colostomy Visit type - Emergency Visit Emergency Visit: Yes ED Registration Date: 05/12/18 Care time: The patient presented to the Emergency Department on the above date and was hospitalized for further evaluation of their emergent condition. - New Patient This patient is new to me today: No - Critical Care Critical Care patient: No - Discharge Referral Referred to [facility] Med P.C.: No
[2018-05-13] MEDS ORDERED: DOCUSATE NA 100 MG/10 ML UNIT-DOSE CUPS PO ONE (15:45)
[2018-05-13] MEDS ORDERED: BENZOCAINE/MENTH/CETYLPYRD CL 1 EACH LOZENGE MM PRN (16:29)
[2018-05-13] MEDS: TETRACAINE/BENZOCAINE/BUTAMBEN 20 GM SPR TP ONE ×2 (17:55→19:51)
[2018-05-14] MEDS: SODIUM CHLORIDE 1,000 ML IV SCH ×4 (00:02→19:50)
[2018-05-14] MEDS: ONDANSETRON 4 MG/2 ML VIAL IVPUSH SCH ×4 (03:43→18:34)
[2018-05-14 08:03] LABS: ANION GAP 6 MMOL/L (8-16); BLOOD UREA NITROGEN 10 mg/dL (7-18); CHLORIDE 108 mmol/L (98-107); CO2 26 mmol/L (21-32); CREATININE 0.5 mg/dL (0.55-1.3); GLUCOSE,RANDOM 85 mg/dL (74-106); PHOSPHOROUS 2.4 mg/dL (2.5-4.9); POTASSIUM 3.6 mmol/L (3.5-5.1); SODIUM 140 mmol/L (136-145)
[2018-05-14] MEDS ORDERED: cefTRIAXone SODIUM 1 GM VIAL ONE (08:55)
[2018-05-14] MEDS ORDERED: DEXTROSE 5%-WATER - 50 ML IVPB ONE (08:55)
[2018-05-14] MEDS: CEFTRIAXONE 1 GM in DEXTROSE 5%-WATER - 50 ML IVPB SCH (09:01)
--- NOTE | 2018-05-14 09:21 | PN ---
Progress Note, Physician Chief Complaint: abdominal pain and vomiting History of Present Illness: 42 yo female PMH colorectal cancer since 2016 (recurrence 4 months prior requiring resection), currently on oral chemotherapy, presented with nausea, vomiting, and abdominal pain for the past few hours. Abdominal pain has improved. Had emesis early this morning not since (~200ml bilious) - Current Medication List Current Medications: Active Medications Benzocaine/Menthol (Cepacol Lozenge -) 1 each MM PRN PRN PRN Reason: SORE THROAT Last Admin: 05/13/18 17:57 Dose: 1 each Sodium Chloride (Normal Saline -) 1,000 mls @ 100 mls/hr IV ASDIR ANA Last Admin: 05/14/18 09:01 Dose: 100 mls/hr Ceftriaxone Sodium 1 gm/ (Dextrose) 50 mls @ 200 mls/hr IVPB DAILY ANA; Protocol Last Admin: 05/14/18 09:01 Dose: 200 mls/hr Morphine Sulfate (Morphine Sulfate) 4 mg IVPUSH Q4H PRN PRN Reason: PAIN LEVEL 6-10 Last Admin: 05/12/18 11:20 Dose: 4 mg Ondansetron HCl (Zofran Injection) 4 mg IVPUSH Q8H ANA Last Admin: 05/14/18 06:55 Dose: 4 mg - Objective Vital Signs: Vital Signs Temperature 98.9 F 05/14/18 06:00 Pulse Rate 76 05/14/18 06:00 Respiratory Rate 18 05/14/18 06:00 Blood Pressure 100/55 L 05/14/18 06:00 O2 Sat by Pulse Oximetry (%) 97 05/13/18 21:00 Vital Signs Period Temp Pulse Resp BP Sys/Nicole Pulse Ox Last 24 Hr 98.5 F-99.1 F 67-82 18-18 100-121/55-75 97 Constitutional: Yes: No Distress, Calm, Thin Eyes: Yes: Conjunctiva Clear, EOM Intact HENT: Yes: Atraumatic, Normocephalic Neck: Yes: Supple, Trachea Midline Cardiovascular: Yes: Regular Rate and Rhythm, S1, S2 Respiratory: Yes: Regular, CTA Bilaterally Gastrointestinal: Yes: Normal Bowel Sounds, Soft, Distention ...Rectal Exam: Yes: Deferred Genitourinary: No: CVA Tenderness - Left, CVA Tenderness - Right Breast(s): No: Dimpling, Discharge from Nipple Musculoskeletal: No: Muscle Pain, Muscle Weakness Extremities: No: Cool, Cyanosis Edema: No Peripheral Pulses WNL: Yes Peripheral Pulses: Left Radial: 2+, Right Radial: 2+, Left Doralis Pedis: 2+, Right Dorsalis Pedis: 2+ Integumentary: No: Jaundice, Rash Neurological: Yes: Alert, Oriented Psychiatric: Yes: Alert, Oriented Labs: CBC, BMP 05/13/18 06:25 05/14/18 06:24 INR, PTT INR 0.92 (0.83-1.09) 05/11/18 00:32 Problem List - Problems (1) SBO (small bowel obstruction) Assessment/Plan: 42 yo female PMH colon cancer, s/p LAR 4 months ago at [facility] with one day of nausea and vomiting while on oral chemotherapy. She does not have an acute abdomen and will not likely require surgery. She reports feeling better advance as tolerated IVF hydration ambulation antiemetic therapy upon discharge Adequate analgesia Discharge planning and f/u at [facility] will follow Code(s): K56.609 - UNSP INTESTNL OBST, UNSP TO PARTIAL VERSUS COMPLETE OBST (2) Nausea & vomiting Code(s): R11.2 - NAUSEA WITH VOMITING, UNSPECIFIED Qualifiers: Vomiting type: bilious vomiting Qualified Code(s): R11.14 - Bilious vomiting (3) Colon cancer Code(s): C18.9 - MALIGNANT NEOPLASM OF COLON, UNSPECIFIED Qualifiers: Colon location: sigmoid Qualified Code(s): C18.7 - Malignant neoplasm of sigmoid colon (4) Intractable abdominal pain Code(s): R10.9 - UNSPECIFIED ABDOMINAL PAIN
--- NOTE | 2018-05-14 16:07 | PN ---
Physical Exam: SUBJECTIVE: Patient seen and examined. She feels much better. NG tube has been removed and she is tolerating clear liquids. OBJECTIVE: Vital Signs Period Temp Pulse Resp BP Sys/Nicole Pulse Ox Last 24 Hr 98.2 F-99.1 F 60-82 18-18 100-119/55-74 97-98 GENERAL: The patient is awake, alert, and fully oriented, in no acute distress. LUNGS: Breath sounds equal, clear to auscultation bilaterally, no wheezes, no crackles, no accessory muscle use. HEART: Regular rate and rhythm, S1, S2 without murmur, rub or gallop. ABDOMEN: Soft, nontender, nondistended, normoactive bowel sounds, no guarding, no rebound, functioning left-sided colostomy. EXTREMITIES: 2+ pulses, warm, well-perfused, no edema. Laboratory Results - last 24 hr 05/14/18 06:24 Sodium 140 Potassium 3.6 Chloride 108 H Carbon Dioxide 26 Anion Gap 6 L BUN 10 Creatinine 0.5 L Creat Clearance w eGFR > 60 Random Glucose 85 Calcium 8.0 L Phosphorus 2.4 L Magnesium 2.0 Active Medications Generic Name Dose Route Start Last Admin Trade Name Freq PRN Reason Stop Dose Admin Benzocaine/Menthol 1 each 05/13/18 16:29 05/13/18 17:57 Cepacol Lozenge - MM 1 each PRN PRN Administration SORE THROAT Sodium Chloride 1,000 mls @ 100 mls/hr 05/12/18 11:00 05/14/18 10:59 Normal Saline - IV Not Given ASDIR [facility] Ceftriaxone Sodium 1 gm/ 50 mls @ 200 mls/hr 05/13/18 10:00 05/14/18 09:01 Dextrose IVPB 200 mls/hr DAILY [facility] Administration Protocol Morphine Sulfate 4 mg 05/12/18 10:39 05/12/18 11:20 Morphine Sulfate IVPUSH 4 mg Q4H PRN Administration PAIN LEVEL 6-10 Ondansetron HCl 4 mg 05/13/18 11:30 05/14/18 10:59 Zofran Injection IVPUSH Not Given Q8H [facility] ASSESSMENT/PLAN: This is a 42 year old woman with a history of colorectal cancer who presented to the ED with abdominal pain, nausea and vomiting. 1. SBO - Improved - NGT removed and she is tolerating clear liquids - Advance diet as tolerated 2. UTI - Continue Rocephin (day 2/3) - Urine culture not done 3. Colorectal cancer, history of APR and colostomy Visit type - Emergency Visit Emergency Visit: Yes ED Registration Date: 05/12/18 Care time: The patient presented to the Emergency Department on the above date and was hospitalized for further evaluation of their emergent condition. - New Patient This patient is new to me today: No - Critical Care Critical Care patient: No - Discharge Referral Referred to [facility] Med P.C.: No
[2018-05-14] MEDS ORDERED: PT OWN MED DRAWER 7, Y5N ONE (16:26)
[2018-05-15] MEDS: ONDANSETRON 4 MG/2 ML VIAL IVPUSH SCH ×2 (04:09→11:15)
--- NOTE | 2018-05-15 08:48 | PN ---
Progress Note, Physician Chief Complaint: abdominal pain and vomiting History of Present Illness: 42 yo female PMH colorectal cancer since 2016 (recurrence 4 months prior requiring resection), currently on oral chemotherapy, presented with nausea, vomiting, and abdominal pain for the past few hours. Abdominal pain has improved. Nausea has not returned. - Current Medication List Current Medications: Active Medications Benzocaine/Menthol (Cepacol Lozenge -) 1 each MM PRN PRN PRN Reason: SORE THROAT Last Admin: 05/13/18 17:57 Dose: 1 each Sodium Chloride (Normal Saline -) 1,000 mls @ 100 mls/hr IV ASDIR ANA Last Admin: 05/14/18 19:50 Dose: 100 mls/hr Ceftriaxone Sodium 1 gm/ (Dextrose) 50 mls @ 200 mls/hr IVPB DAILY [facility]; Protocol Last Admin: 05/14/18 09:01 Dose: 200 mls/hr Morphine Sulfate (Morphine Sulfate) 4 mg IVPUSH Q4H PRN PRN Reason: PAIN LEVEL 6-10 Last Admin: 05/12/18 11:20 Dose: 4 mg Ondansetron HCl (Zofran Injection) 4 mg IVPUSH Q8H ANA Last Admin: 05/15/18 04:09 Dose: Not Given - Objective Vital Signs: Vital Signs Temperature 98.4 F 05/15/18 06:07 Pulse Rate 54 L 05/15/18 06:07 Respiratory Rate 18 05/15/18 06:07 Blood Pressure 115/72 05/15/18 06:07 O2 Sat by Pulse Oximetry (%) 98 05/14/18 21:00 Vital Signs Period Temp Pulse Resp BP Sys/Nicole Pulse Ox Last 24 Hr 98.2 F-98.8 F 54-68 18-20 102-115/59-72 98-98 Intake & Output 05/14/18 05/15/18 05/15/18 23:59 07:59 15:59 Intake Total 1100 Balance 1100 Intake: IV 1100 Normal Saline - 1,000 ml 1100 @ 100 mls/hr IV ASDIR ANA Rx#:[id number] Other: Voiding Method Toilet Toilet Constitutional: Yes: Well Nourished, No Distress, Calm Eyes: Yes: Conjunctiva Clear, EOM Intact HENT: Yes: Atraumatic, Normocephalic Neck: Yes: Supple, Trachea Midline Cardiovascular: Yes: Regular Rate and Rhythm, S1, S2 Respiratory: Yes: Regular, CTA Bilaterally Gastrointestinal: Yes: Normal Bowel Sounds, Soft, Distention ...Rectal Exam: Yes: Deferred Genitourinary: No: CVA Tenderness - Left, CVA Tenderness - Right Musculoskeletal: No: Muscle Pain, Muscle Weakness Extremities: No: Cool, Cyanosis Edema: No Peripheral Pulses WNL: Yes Integumentary: No: Jaundice, Rash Neurological: Yes: Alert, Oriented Psychiatric: Yes: Alert, Oriented Labs: CBC, BMP 05/13/18 06:25 05/14/18 06:24 INR, PTT INR 0.92 (0.83-1.09) 05/11/18 00:32 Problem List - Problems (1) SBO (small bowel obstruction) Assessment/Plan: 42 yo female PMH colon cancer, s/p LAR 4 months ago at [facility] with one day of nausea and vomiting while on oral chemotherapy. She does not have an acute abdomen and will not likely require surgery. She reports feeling better. Most of her presenting symptoms have abated. advance as tolerated IVF hydration ambulation antiemetic therapy upon discharge Adequate analgesia Discharge planning and f/u at [facility] will follow Code(s): K56.609 - UNSP INTESTNL OBST, UNSP TO PARTIAL VERSUS COMPLETE OBST (2) Nausea & vomiting Code(s): R11.2 - NAUSEA WITH VOMITING, UNSPECIFIED Qualifiers: Vomiting type: bilious vomiting Qualified Code(s): R11.14 - Bilious vomiting (3) Colon cancer Code(s): C18.9 - MALIGNANT NEOPLASM OF COLON, UNSPECIFIED Qualifiers: Colon location: sigmoid Qualified Code(s): C18.7 - Malignant neoplasm of sigmoid colon (4) Intractable abdominal pain Code(s): R10.9 - UNSPECIFIED ABDOMINAL PAIN
[2018-05-15] MEDS ORDERED: cefTRIAXone SODIUM 1 GM VIAL ONE (09:09)
[2018-05-15] MEDS ORDERED: DEXTROSE 5%-WATER - 50 ML IVPB ONE (09:10)
[2018-05-15 09:35] VITALS: BP 113/74; PULSE 57; TEMP 98.7
[2018-05-15] MEDS: CEFTRIAXONE 1 GM in DEXTROSE 5%-WATER - 50 ML IVPB SCH (09:46)
[2018-05-15 10:00] LABS: ANION GAP 5 MMOL/L (8-16); BLOOD UREA NITROGEN 4 mg/dL (7-18); CHLORIDE 105 mmol/L (98-107); CO2 29 mmol/L (21-32); CREATININE 0.5 mg/dL (0.55-1.3); GLUCOSE,RANDOM 78 mg/dL (74-106); MAGNESIUM 2.1 mg/dL (1.8-2.4); PHOSPHOROUS 2.8 mg/dL (2.5-4.9); POTASSIUM 3.4 mmol/L (3.5-5.1); SODIUM 139 mmol/L (136-145)
[2018-05-15] MEDS ORDERED: POTASSIUM CHLORIDE TABS 20 MEQ TABLET.ER (FP) PO ONE (10:42)
--- NOTE | 2018-05-15 12:19 | DS ---
Physical Exam: SUBJECTIVE: Patient seen and examined OBJECTIVE: Vital Signs Period Temp Pulse Resp BP Sys/Nicole Pulse Ox Last 24 Hr 98.2 F-98.8 F 54-67 18-20 102-115/59-74 98-98 PHYSICAL EXAM GENERAL: The patient is awake, alert, and fully oriented, in no acute distress. HEAD: Normal with no signs of trauma. EYES: PERRL, extraocular movements intact, sclera anicteric, conjunctiva clear. ENT: Ears normal, nares patent, oropharynx clear without exudates, moist mucous membranes. NECK: Trachea midline, full range of motion, supple. LUNGS: Breath sounds equal, clear to auscultation bilaterally, no wheezes, no crackles, no accessory muscle use. HEART: Regular rate and rhythm, S1, S2 without murmur, rub or gallop. ABDOMEN: Soft, nontender, nondistended, normoactive bowel sounds, no guarding, no rebound, no hepatosplenomegaly, no masses. EXTREMITIES: 2+ pulses, warm, well-perfused, no edema. NEUROLOGICAL: Cranial nerves II through XII grossly intact. Normal speech, gait not observed. PSYCH: Normal mood, normal affect. SKIN: Warm, dry, normal turgor, no rashes or lesions noted. LABS Laboratory Results - last 24 hr 05/15/18 09:10 Sodium 139 Potassium 3.4 L Chloride 105 Carbon Dioxide 29 Anion Gap 5 L BUN 4 L Creatinine 0.5 L Creat Clearance w eGFR > 60 Random Glucose 78 Calcium 9.0 Phosphorus 2.8 Magnesium 2.1 HOSPITAL COURSE: Date of Admission:05/12/18 Date of Discharge: 05/15/18 Discharge Summary Reason For Visit: SMALL BOWEL OBSTRUCTION INTRACTABLE ABD Current Active Problems SBO (small bowel obstruction) (Acute) UTI (urinary tract infection) (Acute) Colorectal cancer (Chronic) Colostomy present (Chronic) Condition: Improved - Instructions Diet, Activity, Other Instructions: You were admitted to [facility] on 05/12 with a small bowel obstruction. You were treated with bowel rest, IV fluid, and an NG tube. You were seen by a surgeon, Dr. Bryson Vinson. You improved and the NG tube was removed on 05/13. By 05/15, you were able to tolerate solid food. You were also treated with Rocephin x 3 days for a urinary tract infection. You are being discharged on 05/15. You may resume your usual diet and activity. Please return to the ER if you develop abdominal pain or vomiting. Disposition: HOME - Home Medications Comprehensive Discharge Medication List: Ambulatory Orders Capecitabine [Xeloda -] 150 mg PO DAILY 02/11/16 Docusate Sodium [Colace -] 100 mg PO BID 02/11/16 Oxaliplatin [Eloxatin -] 50 mg IV ONCE 02/11/16 Psyllium Husk [Metamucil] 660 gm PO DAILY 02/11/16 - Discharge Referral Referred to [facility] No
== END 2018-05-15 13:22 | disposition home or self-care (01) | DRG 389 ==
LOC: JER 22:42 → JERBED 05-12 04:53 → UNDOADMIN 05-12 06:30 → JERBED 05-12 06:30 → J5S 05-12 18:30 → J7W 05-12 20:55
PROVIDERS: ADMIT Internal Medicine; ATTEND Internal Medicine
PROC: 0D9670Z Drainage of Stomach with Drainage Device, Via Natural or Artificial Opening (ICD-10-PCS; principal; 2018-05-12)
DX: K56.609 Unspecified intestinal obstruction, unspecified as to partial versus complete obstruction (principal); N39.0 Urinary tract infection, site not specified; C18.7 Malignant neoplasm of sigmoid colon; R11.14 Bilious vomiting; R10.9 Unspecified abdominal pain; Z93.3 Colostomy status
CPT/HCPCS: 36415; 74018-TC-FY; 74019-TC-FY; 74177-TC; 80048; 80053; 81003; 81015; 83605; 83735; 84100; 84702; 84703; 85025; 85610; 86850; 86900; 86901; 87040; 93005; 93010; 99285-25; J7030